=== PATIENT | male | born 1995 | race African-American/Black ===

== ENCOUNTER 2019-08-15 20:18 | Emergency (ER) | payer SELFPAY ==
[~2019-08-15] VITALS: Ht 182.9 cm; Wt 86.4 kg
[2019-08-15 20:22] VITALS: TEMP 96.8
[2019-08-15 20:31] LABS: BASO # 0.1 (0.0-0.2); BASO % 0.8 % (0.0-2.0); EOS # 0.2 (0.0-0.7); EOS % 2.1 % (0-4.0); GRAN # 3.7 (1.4-6.5); GRAN % 46.3 % (42.2-75.2); HEMATOCRIT 41.2 % (42.0-52.0); HEMOGLOBIN 13.6 g/dl (13.5-18.0); LYMPH # 3.6 (1.2-3.4); LYMPH % 44.8 % (20.0-51.0); MEAN CELL VOLUME 93 fl (80.0-100.0); MEAN CORPUSCULAR HEMOGLOBIN 31 pg (27.0-31.0); MEAN CORPUSCULAR HGB CONC 33 g/dl (33.0-37.0); MEAN PLATELET VOLUME 9.8 fl (7.4-10.4); MONO # 0.5 (0.1-0.6); MONO % 5.9 % (1.7-9.3); PLATELET COUNT 208 K/mm3 (130-400); RED BLOOD COUNT 4.44 M/mm3 (4.20-5.60); REDCELL DISTRIBUTION WIDTH-CV 11.3 % (11.5-14.5)
[2019-08-15 20:43] LABS: ALBUMIN 4.5 gm/dL (3.5-5.0); BILIRUBIN,TOTAL 0.4 mg/dL (0.0-1.0); CALCIUM 8.9 mg/dL (8.4-10.2); CREATININE, serum 1.03 (0.66-1.25); POTASSIUM 3.8 mmol/L (3.4-5.0); TOTAL PROTEIN 8.1 gm/dL (6.4-8.2)
[2019-08-15 22:33] VITALS: BP 119/73; PULSE 69
== END 2019-08-15 22:39 | disposition home or self-care (01) ==
LOC: COL.ER 20:18
PROVIDERS: Emergency Medicine
DX: F10.129 Alcohol abuse with intoxication, unspecified (principal); Y90.7 Blood alcohol level of 200-239 mg/100 ml
CPT/HCPCS: J2405; J7030

== ENCOUNTER 2021-08-26 12:43 | Emergency (ER) | payer BC ==
[~2021-08-26] VITALS: Ht 180.3 cm; Wt 95.5 kg
[2021-08-26 14:32] VITALS: TEMP 20
[2021-08-26] MEDS ORDERED: ZITHROMAX Z PA250 MG PO (14:48)
[2021-08-26] MEDS ORDERED: PROAIR HFA0.09 MG/AC IH (14:48)
[2021-08-26 15:35] VITALS: BP 111/61; PULSE 120
== END 2021-08-26 15:35 | disposition home or self-care (01) ==
LOC: COL.ER 12:43
DX: R06.2 Wheezing (principal); R50.9 Fever, unspecified; Z20.822 Contact with and (suspected) exposure to COVID-19; Z28.310 Unvaccinated for COVID-19
CPT/HCPCS: J8540